=== PATIENT | female | born 1990 | race African-American/Black ===

== ENCOUNTER 2024-01-29 10:06 | Emergency (ER) | payer MEDICAID ==
[~2024-01-29] VITALS: Ht 172.7 cm; Wt 115.0 kg
[2024-01-29 10:08] VITALS: O2SAT 98
[2024-01-29 13:28] VITALS: BP 140/68; PULSE 91; RESP 17; TEMP 98.7
== END 2024-01-29 13:30 | disposition home or self-care (01) ==
LOC: ER 10:28
DX: F41.9 Anxiety disorder, unspecified (principal); R56.9 Unspecified convulsions; Z90.89 Acquired absence of other organs
CPT/HCPCS: 99283

== ENCOUNTER 2024-04-09 23:47 | Emergency (ER) | payer MEDICAID ==
[~2024-04-09] VITALS: Ht 172.7 cm; Wt 100.0 kg
[2024-04-09 23:48] VITALS: O2SAT 97
[2024-04-10 00:05] VITALS: BP 153/92; PULSE 111; RESP 18
[2024-04-10 00:34] LABS: CHLORIDE 106 mEq/L (98-107); POTASSIUM 3.3 mEq/L (3.5-5.1); SODIUM 140 mEq/L (136-145)
[2024-04-10 00:35] LABS: CARBON DIOXIDE 28 mEq/L (21-32)
[2024-04-10] MEDS: ACETAMINOPHEN 1000MG/100ML 100 ML IV ONE (00:35)
[2024-04-10 00:36] LABS: CALCIUM 9.2 mg/dL (8.7-10.4)
[2024-04-10 00:40] LABS: GLUCOSE 87 mg/dL (70-105); UREA NITROGEN BLOOD 9 mg/dL (9-23)
[2024-04-10 00:41] LABS: ETHANOL BLOOD 164 mg/dL (<10); HCG SCREEN NEGATIVE
[2024-04-10] MEDS: TETANUS, DIPHTHERIA, PERTUSSIS VAC/PF 0.5ML (>10YR OLD) IM ONE (00:43)
[2024-04-10] MEDS ORDERED: LIDOCAINE HCL/EPINEPHRINE 1%-EPI 1:100,000 20 ML VIAL INFIL ONE (01:45)
[2024-04-10] MEDS ORDERED: BACITRACIN ZINC OINT UDPKT TOP ONE (01:45)
[2024-04-10] MEDS ORDERED: POTASSIUM CHLORIDE 20MEQ/PACKET PO NR (02:00)
[2024-04-10] MEDS ORDERED: NAPR-1074 MT (04:50)
[2024-04-10] MEDS ORDERED: BACITRACIN 14GM TUBE TOP ONE (05:00)
[2024-04-10 06:12] LABS: BASOPHILS % 0.6 % (0.0-2.0); EOSINOPHILS % 0.9 % (0.0-5.0); HEMATOCRIT. 39.6 % (36.0-48.0); HEMOGLOBIN. 12.5 g/dL (12.0-16.0); LYMPHOCYTES % 23.9 % (20.0-50.0); MEAN CORPUSCULAR HEMOGLOBIN 25.6 pg (28.0-32.0); MEAN CORPUSCULAR HGB CONC 31.6 g/dL (31.0-37.0); MEAN CORPUSCULAR VOLUME 81.2 fL (81.0-99.0); MEAN PLATELET VOLUME 10.4 fl (7.4-10.4); MONOCYTES % 2.7 % (2.0-8.0); NEUTROPHILS % 71.9 % (40.0-76.0); PLATELET 219 x1000/uL (130-400); RED BLOOD CELL COUNT 4.87 mill/uL (4.2-5.4); RED CELL DISTRIBUTION WIDTH 17.9 % (11.6-14.6); WHITE BLOOD COUNT 8.8 x1000/uL (4.5-11.0)
== END 2024-04-10 05:16 | disposition home or self-care (01) ==
LOC: EDUNIT# 23:47 → ER 23:47
DX: F10.129 Alcohol abuse with intoxication, unspecified (principal); R56.9 Unspecified convulsions; S81.011A Laceration without foreign body, right knee, initial encounter; W18.30XA Fall on same level, unspecified, initial encounter; Y93.89 Activity, other specified; Y92.89 Other specified places as the place of occurrence of the external cause; Y99.8 Other external cause status; Y90.6 Blood alcohol level of 120-199 mg/100 ml
CPT/HCPCS: 80048; 80320; 82962; 84703; 85025; 87040; 36415; 73560; 73620; 12001; 99285; 70450; 90715; 90471; 96365; J3490; Z7610 ×4; G0480; J0131

== ENCOUNTER 2025-03-10 01:38 | Emergency (ER) | payer MEDICAID ==
[~2025-03-10] VITALS: Ht 167.6 cm; Wt 113.0 kg
[~2025-03-10 01:38] MED LIST: NAPR-1074 MT
[2025-03-10 01:44] VITALS: O2SAT 99
[2025-03-10 01:57] VITALS: TEMP 36.8
[2025-03-10 02:08] LABS: BASOPHILS % 0.6 % (0.0-2.0); EOSINOPHILS % 1.5 % (0.0-5.0); HEMATOCRIT. 39.3 % (36.0-48.0); HEMOGLOBIN. 12.7 g/dL (12.0-16.0); LYMPHOCYTES % 37.7 % (20.0-50.0); MEAN CORPUSCULAR HEMOGLOBIN 27.2 pg (28.0-32.0); MEAN CORPUSCULAR HGB CONC 32.2 g/dL (31.0-37.0); MEAN CORPUSCULAR VOLUME 84.3 fL (81.0-99.0); MEAN PLATELET VOLUME 9.7 fl (7.4-10.4); MONOCYTES % 4.8 % (2.0-8.0); NEUTROPHILS % 55.4 % (40.0-76.0); PLATELET 205 x1000/uL (130-400); RED BLOOD CELL COUNT 4.66 mill/uL (4.2-5.4); RED CELL DISTRIBUTION WIDTH 14.8 % (11.6-14.6); WHITE BLOOD COUNT 7.9 x1000/uL (4.5-11.0)
[2025-03-10 02:15] LABS: CHLORIDE 101 mEq/L (98-107); POTASSIUM 3.2 mEq/L (3.5-5.1); SODIUM 138 mEq/L (136-145)
[2025-03-10 02:16] LABS: CARBON DIOXIDE 28 mEq/L (21-32)
[2025-03-10 02:21] LABS: CREATININE 0.8 mg/dL (0.6-1.0); ETHANOL BLOOD 48 mg/dL (<10); GLUCOSE 81 mg/dL (70-105); UREA NITROGEN BLOOD 8 mg/dL (9-23)
[2025-03-10 02:23] LABS: CREATINE KINASE 177 IU/L (34-145)
[2025-03-10 02:28] LABS: AMMONIA < 17 uMol/L (<32)
[2025-03-10] MEDS: LEVETIRACETAM 500MG PREMIX 100 ML IV ONE (02:55)
[2025-03-10] MEDS: ACETAMINOPHEN 1000MG/100ML 100 ML IV ONE (03:05)
[2025-03-10] MEDS ORDERED: IBUP-2029 MT (04:32)
[2025-03-10] MEDS: POTASSIUM CHLORIDE 20MEQ/PACKET PO NR (04:39)
[2025-03-10 04:47] VITALS: BP 109/56; PULSE 79; RESP 14; O2SAT 95
== END 2025-03-10 06:00 | disposition home or self-care (01) ==
LOC: ER 01:38
DX: G40.909 Epilepsy, unspecified, not intractable, without status epilepticus (principal); M25.572 Pain in left ankle and joints of left foot; M25.512 Pain in left shoulder; F10.129 Alcohol abuse with intoxication, unspecified; Z79.899 Other long term (current) drug therapy; Y90.2 Blood alcohol level of 40-59 mg/100 ml
CPT/HCPCS: 80048; 80320; 82140; 82550; 82962; 83690; 85025; 36415; 73030; 73610; 70450; 93005; 96365; 96375; 99285; J1953; G0480; J0131